=== PATIENT | female | born 1940 | race Caucasian/White ===

== ENCOUNTER → 2021-01-04 | Day surgery (SDC) | payer MEDICARE, OTHER ==
[~2021-01-04] MED LIST: ALDACTONE25 MG PO; AMIODARONE HCL200 MG PO; ARAVA20 MG PO; ASCORBIC ACID500 MG PO; ASPIRIN EC325 MG PO; ASPIRIN EC81 MG PO; ASPIRIN325 MG PO; CALCIUM + VITA1 EACH PO; COZAAR50 MG PO; ELIQUIS5 MG PO; FOSAMAX70 MG PO; IRON159 MG PO; KLOR-CON M2020 MEQ PO; LASIX20 MG PO; LASIX40 MG PO; LASIX80 MG PO; LEVOTHYROXINE100 MCG PO; LEVOXYL50 MCG PO; LIPITOR20 MG PO; MAG-OXIDE 400M400 MG PO; OMEPRAZOLE40 MG PO; ONDANSETRON ODT8 MG PO; ORENCIA IV; ORENCIA50 MG/0.4 IV; OXYCODONE-APAP1 TAB PO; PAXIL10 MG PO; PERCOCET 7.5/321 TAB PO; PLAQUENIL200 MG PO; PLAVIX75 MG PO; POTASSIUM CHLO10 MEQ PO; SENOKOT8.6 MG PO; TIKOSYN250 MCG PO; TOPROL XL25 MG PO; VALSARTAN80 MG PO; VENTOLIN HFA IN18 GM INH; VITAMIN B-121000 MCG IM; [UNRECOGNIZED DRUG - OTHER] PR
[2021-01-04 08:00] LABS: HCT 35.5 % (37.0-47.0); HGB 11.5 g/dl (12.5-16.0); MCH 35.3 pg (25.0-31.0); MCHC 32.4 g/dL (32.0-36.0); MCV 108.9 fL (78.0-100.0); MPV 9.7 fL (6.0-9.5); RBC 3.26 M/uL (4.20-5.40); RDW 13.2 % (11.5-14.0); WBC 8.3 K/uL (4.0-10.5)
[2021-01-04 08:30] LABS: ALBUMIN 3.5 g/dL (3.4-5.0); BILIRUBIN - TOTAL 0.5 mg/dL (0.2-1.0); BUN/CREAT RATIO (CALC) 18.8 RATIO; CREATININE 1.28 mg/dL (0.51-0.95); GLOBULIN (CALCULATION) 2.7 g/dL; POTASSIUM 3.9 mmol/L (3.5-5.1); TOTAL PROTEIN 6.2 g/dL (6.4-8.2)
== END | disposition home or self-care (01) ==
LOC: FAS 07:25
PROVIDERS: Surgery
DX: K57.30 Diverticulosis of large intestine without perforation or abscess without bleeding (principal); K29.50 Unspecified chronic gastritis without bleeding; K22.2 Esophageal obstruction; M19.90 Unspecified osteoarthritis, unspecified site; I13.10 Hypertensive heart and chronic kidney disease without heart failure, with stage 1 through stage 4 chronic kidney disease, or unspecified chronic kidney disease; N18.9 Chronic kidney disease, unspecified; E03.9 Hypothyroidism, unspecified; I25.2 Old myocardial infarction; M06.9 Rheumatoid arthritis, unspecified; G47.30 Sleep apnea, unspecified; Z79.82 Long term (current) use of aspirin; Z79.899 Other long term (current) drug therapy; Z79.890 Hormone replacement therapy; Z88.6 Allergy status to analgesic agent; Z95.0 Presence of cardiac pacemaker
CPT/HCPCS: 36415; 80053; 84443; 88305; C1726; J1610; J2704; J7120